=== PATIENT | female | born 2000 | race Caucasian/White ===

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

== ENCOUNTER 2020-03-29 15:20 | Emergency (ER) | payer MEDICAID ==
[2020-03-29] MEDS ORDERED: OXYCODONE-ACETAMINOPHEN 5-325 MG TABLET PO ONE (16:21)
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
[2020-03-29] MEDS ORDERED: LORAZEPAM 1 MG TABLET PO ONE (17:45)
[2020-03-29] MEDS ORDERED: HYDROCODONE/ACETAMINOPHEN 5-325 MG (6 TAB/ER DISP) PO PRN (17:53)
[2020-03-29] MEDS ORDERED: MORPHINE SULFATE 10 MG/ML INJ IV ONE (18:18)
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
[2020-03-29] MEDS ORDERED: FAMOTIDINE INJ/PF 20 MG/2 ML SDV IV ONE (19:56)
--- NOTE | 2020-03-29 20:12 | EKG REPORT ---
SEVERITY:- NORMAL ECG - SINUS RHYTHM : Confirmed by: Noel Olmedo MD 29-Mar-2020 20:12:10
[2020-03-29 20:24] VITALS: BP 104/72
== END 2020-03-29 20:32 | disposition home or self-care (01) ==
LOC: ER 15:20
DX: S06.9X9A Unspecified intracranial injury with loss of consciousness of unspecified duration, initial encounter (principal); S00.81XA Abrasion of other part of head, initial encounter; S40.022A Contusion of left upper arm, initial encounter; R22.0 Localized swelling, mass and lump, head; R51 Headache; R07.9 Chest pain, unspecified; R06.4 Hyperventilation; R10.10 Upper abdominal pain, unspecified; Y04.0XXA Assault by unarmed brawl or fight, initial encounter; J45.909 Unspecified asthma, uncomplicated
CPT/HCPCS: 93005; 99285; 96374; 96375; 70450; 72125; 72128; 72131; 74177; 93010; J2270; S0028